=== PATIENT | male | born 2000 | race Caucasian/White ===

== ENCOUNTER 2020-03-07 14:30 | Emergency (ER) | payer OTHER ==
[~2020-03-07] VITALS: Wt 97.5 kg
[~2020-03-07 14:30] MED LIST: ABILIFY2 MG PO; CLARITIN5 MG/5 ML PO; IBU800 MG PO; PRELONE5 MG/5 ML PO; STRATTERA18 MG PO; ZOFRAN4 MG PO
[2020-03-07 14:39] VITALS: BP 127/78
[2020-03-07] MEDS ORDERED: CLINDAMYCIN HC300 MG PO (14:52)
== END 2020-03-07 14:54 | disposition home or self-care (01) ==
LOC: ED 14:30
DX: L02.11 Cutaneous abscess of neck (principal); Z88.0 Allergy status to penicillin; Z79.899 Other long term (current) drug therapy

== ENCOUNTER 2020-05-05 02:59 | Emergency (ER) | payer OTHER ==
[~2020-05-05] VITALS: Ht 187.9 cm; Wt 99.8 kg
[~2020-05-05 02:59] MED LIST changes: +CLINDAMYCIN HC300 MG PO
[2020-05-05 03:04] VITALS: BP 120/67
== END 2020-05-05 04:45 | disposition home or self-care (01) ==
LOC: ED 02:59
DX: S39.012A Strain of muscle, fascia and tendon of lower back, initial encounter (principal); Z88.0 Allergy status to penicillin; X58.XXXA Exposure to other specified factors, initial encounter; Y93.55 Activity, bike riding; Y92.89 Other specified places as the place of occurrence of the external cause; Y99.8 Other external cause status

== ENCOUNTER 2021-06-16 17:57 | Emergency (ER) | payer OTHER ==
[~2021-06-16] VITALS: Ht 187.9 cm; Wt 90.7 kg
[2021-06-16 18:36] VITALS: BP 135/82
[2021-06-16 20:07] LABS: BASO % 0.3 % (0.0-1.0); EOS % 0.4 % (1.0-4.0); HEMATOCRIT 45.6 % (42.0-52.0); LYMPH # 1.3 10*3/uL (1.3-4.4); LYMPH % 17.2 % (27.0-41.0); MEAN CORPUSCULAR HGB 30.9 pg (27.0-31.0); MEAN PLATELET VOLUME 9.5 fl (9.6-12.3); MONO # 0.6 10*3/uL (0.1-1.0); MONO % 8.5 % (3.0-9.0); NEUT # 5.3 10*3/uL (2.3-7.9); NEUT % 73.3 % (47.0-73.0); PLATELET COUNT AUTOMATED 220 10*3/uL (130-400); RED BLOOD COUNT 5.01 10*6/uL (4.50-5.90); RED CELL DISTRI WIDTH 12.5 % (0-14.5); WHITE BLOOD COUNT 7.3 10*3/uL (4.8-10.8)
[2021-06-16 20:09] LABS: BILIRUBIN Negative (Negative); BLOOD Negative (Negative); CLARITY Turbid (Clear); COLOR Yellow (Yellow); GLUCOSE Negative (Negative); KETONE Trace (Negative); LEUKO ESTERASE Negative (Negative); NITRITE Negative (Negative); SPECIFIC GRAVITY 1.025 (1.001-1.030)
[2021-06-16 20:19] LABS: BACTERIA TRACE; WBC 0-2 wbc/hpf (0-5)
[2021-06-16 21:56] LABS: ALBUMIN 3.9 gm/dl (3.1-4.5); ALKALINE PHOSPHATASE 103 U/L (45-117); BUN 13 mg/dl (7-24); CHLORIDE 107 mmol/L (98-107); CREATININE 0.93 mg/dL (0.70-1.30); LIPASE 64 U/L (73-393); POTASSIUM 3.9 mmol/L (3.5-5.1); SGOT/AST 20 IU/L (3-35); SODIUM 138 mmol/L (136-145); TOTAL PROTEIN 7.9 gm/dL (6.4-8.2)
[2021-06-16 22:00] LABS: SGPT/ALT 33 U/L (12-78)
== END 2021-06-16 22:58 | disposition left against medical advice (07) ==
LOC: ED 17:57
PROVIDERS: Emergency Medicine
DX: R10.31 Right lower quadrant pain (principal); R19.7 Diarrhea, unspecified; Z88.0 Allergy status to penicillin